=== PATIENT | female | born 1985 | race American Indian/Alaskan Native ===

== ENCOUNTER 2018-02-07 19:41 | Emergency (ER) | payer SELFPAY ==
[2018-02-07] MEDS ORDERED: NORCO 5/325 PO ONE (22:33)
[2018-02-07] MEDS ORDERED: NORCO 5/325 ONE (22:33)
[2018-02-08] MEDS ORDERED: MOTRIN PO ONE ×2 (00:40→00:41)
[2018-02-08] MEDS ORDERED: TYLENOL #3 ONE (00:40)
[2018-02-08] MEDS ORDERED: TYLENOL #3 PO ONE (00:41)
--- NOTE | 2018-02-08 01:05 | Emergency Department Report ---
HPI - General Chief Complaint: Dental/Oral Time Seen by Provider: 02/08/18 00:48 - HPI HPI: The patient is a 32-year-old female with a significant history of poor dentition , who presents for evaluation of toothache. The patient reports severe upper frontal tooth pain for the past one day, constant since onset, 10/10 in severity , throbbing in quality, exacerbated with consuming cold or hot food. The patient denies fever, chills and night sweats, facial swelling, purulent drainage or discharge, paresthesias, throat pain, difficulty swallowing. ED Past Medical Hx - Social History Smoking Status: Never Smoker Substance Use Type: Marijuana - Medications Home Medications: Home Medications Medication Instructions Recorded Confirmed Last Taken Type Clindamycin [Clindamycin CAP] 300 mg PO Q8H #30 cap 07/26/15 Unknown Rx HYDROcodone/APAP 5-325 [[place] 1 each PO Q6HR PRN #14 tablet 07/26/15 Unknown Rx 5/325] Vit-Fe Fumar-FA [ 1 tab PO QDAY #90 tablet 07/26/15 Unknown Rx Vitamin] Acetaminophen/Codeine [Tylenol #3] 1 tab PO Q6H PRN #10 tab 02/08/18 Unknown Rx Ibuprofen [Motrin] 800 mg PO Q8HR PRN #15 tablet 02/08/18 Unknown Rx Nystas/Diphen/Xyl Visc/Mylanta 30 ml MM Q4H #1 bottle 02/08/18 Unknown Rx [Magic Mouthwash] Penicillin Vk [Veetids TAB] 250 mg PO QID #20 tablet 02/08/18 Unknown Rx ED Review of Systems ROS: Stated complaint: ASSCESS FACE IS SWOLLEN IN PAIN Other details as noted in HPI Constitutional: denies: fever HEENT: reports tooth and mouth pain denies: throat or neck pain Respiratory: denies: cough, shortness of breath Cardiovascular: denies: chest pain Endocrine: denies unexplained weight loss or gain Gastrointestinal: denies: abdominal pain, nausea Genitourinary: denies: dysuria Musculoskeletal: denies: leg swelling Skin: denies: rash Neurological: denies: headache Hematological/Lymphatic: denies: easy bleeding or easy bruising Psych: denies sadness or hopelessness Physical Exam - Physical Exam Vital Signs: Vital Signs 02/07/18 02/07/18 20:24 20:49 Temperature 98.9 F 98.9 F Pulse Rate 74 74 Respiratory 18 20 Rate Blood Pressure 144/93 144/93 O2 Sat by Pulse 100 99 Oximetry Physical Exam: General: well-nourished, well-developed, no acute distress Head: Normocephalic, atraumatic Eyes: normal sclera HEENT: Mucous membranes are pink and moist, multiple dental caries throughout, mild gingival redness present to the upper left central and lateral incisor, no fluctuance, no purulent drainage or discharge, no sign of abscess at this time Neck: trachea midline, neck supple, No neck stiffness, no cervical adenopathy Respiratory: Breath sounds equal bilaterally, no wheezing, rales, or rhonchi Cardio: S1 and S2 present, no murmurs, rubs, gallops, capillary refill is brisk Musc: No pitting edema Skin: No rash Neuro: no facial drooping, normal speech Psych: Normal affect ED Course Vital Signs 02/07/18 02/07/18 20:24 20:49 Temperature 98.9 F 98.9 F Pulse Rate 74 74 Respiratory 18 20 Rate Blood Pressure 144/93 144/93 O2 Sat by Pulse 100 99 Oximetry ED Medical Decision Making - Medical Decision Making Patient seen and examined by myself. Exam findings reveal multiple dental caries and mild gingival cellulitis. The patient is given pain medicine. There are no signs of dental alveolar abscess at this time. The patient is given prescription for penicillin VK. The patient was reevaluated and reported that their symptoms were markedly improved. The patient is stable for discharge with outpatient follow-up. The patient is given follow-up and return instructions. The patient expressed understanding and agreed with the plan. The patient is discharged in stable condition. Critical care attestation.: If time is entered above; I have spent that time in minutes in the direct care of this critically ill patient, excluding procedure time. ED Disposition Clinical Impression: Dental caries into pulp, Toothache Disposition: - TO HOME OR SELFCARE Is pt being admited?: No Does the pt Need Aspirin: No Condition: Stable Instructions: Dental Caries (ED), Toothache (ED) Referrals: [facility] [Outside] - 3-5 Days Time of Disposition: 01:27
[2018-02-08 01:54] VITALS: BP 139/81
== END 2018-02-08 01:35 | disposition home or self-care (01) ==
LOC: ED 19:41
DX: K02.63 Dental caries on smooth surface penetrating into pulp (principal); F12.10 Cannabis abuse, uncomplicated; Z91.013 Allergy to seafood